=== PATIENT | female | born 1960 | race Caucasian/White ===

== ENCOUNTER 2019-08-05 18:20 | Emergency (ER) | payer OTHER ==
[~2019-08-05] VITALS: Ht 165.1 cm; Wt 62.7 kg
[2019-08-05 18:39] VITALS: Ht 165.1 cm; Wt 62.7 kg
[2019-08-05 20:36] VITALS: BP 134/76
== END 2019-08-05 20:36 | disposition home or self-care (01) ==
LOC: ED 18:20
DX: S61.012A Laceration without foreign body of left thumb without damage to nail, initial encounter (principal); I10 Essential (primary) hypertension; W26.0XXA Contact with knife, initial encounter; Y93.89 Activity, other specified; Y92.89 Other specified places as the place of occurrence of the external cause; Y99.8 Other external cause status
CPT/HCPCS: 90715; J1885; J2001

== ENCOUNTER 2019-08-13 13:11 | Emergency (ER) | payer OTHER ==
[~2019-08-13] VITALS: Ht 167.6 cm; Wt 63.5 kg
[2019-08-13 13:13] VITALS: BP 145/77; Ht 167.6 cm; Wt 63.5 kg
== END 2019-08-13 13:50 | disposition home or self-care (01) ==
LOC: ED 13:11
DX: S61.012D Laceration without foreign body of left thumb without damage to nail, subsequent encounter (principal); I10 Essential (primary) hypertension; X58.XXXD Exposure to other specified factors, subsequent encounter